=== PATIENT | female | born 1990 | race African-American/Black ===

== ENCOUNTER 2022-05-06 10:25 | Inpatient (IN) | payer OTHER ==
[2022-05-06] MEDS ORDERED: AMPICILLIN SODIUM 2 GM VIAL ONE (10:52)
[2022-05-06] MEDS: ELECTROLYTE-148 SOLN 1,000 ML IV SCH (11:00)
[2022-05-06] MEDS ORDERED: OXYTOCIN 20 UNITS in 0.9% NS 40 UNIT/2,000 ML INFUS.BAG IV ONE (11:21)
[2022-05-06] MEDS ORDERED: ceFAZolin SODIUM 1 GM VIAL ONE (11:22)
[2022-05-06] MEDS ORDERED: morphine SULFATE/PF 1 MG/2 ML (2cc Syringe - QUVA) ONE (11:22)
[2022-05-06 11:24] LABS: BASO % 1.1 % (0-2.0); EOS % 3.3 % (0-4.5); HEMATOCRIT 35.3 % (32.4-45.2); HEMOGLOBIN 11.4 GM/dL (10.7-15.3); LYMPH % 14.2 % (8-40); MCH 21.6 pg (25.7-33.7); MCHC 32.3 g/dl (32.0-36.0); MEAN PLT VOLUME 10.2 fl (7.5-11.1); MONO % 9.8 % (3.8-10.2); NEUT % 71.6 % (42.8-82.8); PLATELET COUNT 177 10^3/uL (134-434); RBC 5.28 M/mm3 (3.60-5.2); RDW 15.8 % (11.6-15.6); WHITE BLOOD COUNT 11.8 K/mm3 (4.0-10.0)
[2022-05-06] MEDS ORDERED: METHYLERGONOVINE MALEATE 0.2 MG/1 ML AMP IM PRN (11:25)
[2022-05-06] MEDS ORDERED: BENZOCAINE 28 GM HEMORRHOIDAL OINTMENT TP PRN (11:25)
[2022-05-06] MEDS ORDERED: BENZOCAINE 20% 57 GM BOTTLE TP PRN (11:25)
[2022-05-06] MEDS ORDERED: AMPICILLIN - 2 GM in SODIUM CHLORIDE 100 ML IVPB ONE (11:25)
[2022-05-06] MEDS ORDERED: ACETAMINOPHEN 325 MG TABLET (FP) PO PRN (11:25)
[2022-05-06] MEDS ORDERED: IBUPROFEN 800 MG/8 ML IJ IVPB PRN (11:25)
[2022-05-06 11:40] VITALS: BMI 29.9
[2022-05-06] MEDS ORDERED: OXYTOCIN 10 UNITS/ML VIAL ONE (11:43)
[2022-05-06] MEDS ORDERED: DEXAMETHASONE SOD PHOSPHATE 4 MG/1 ML VIAL ONE (11:46)
[2022-05-06] MEDS ORDERED: ONDANSETRON 4 MG/2 ML VIAL ONE (11:46)
[2022-05-06 11:51] LABS: CALCIUM 8.6 mg/dL (8.5-10.1)
[2022-05-06 11:52] LABS: BLOOD UREA NITROGEN 5.9 mg/dL (7-18)
[2022-05-06 11:55] LABS: CREATININE 0.7 mg/dL (0.55-1.3)
[2022-05-06 12:02] LABS: ANISOCYTOSIS 2+; MACROCYTOSIS 1+
[2022-05-06 12:03] LABS: PLATELET ESTIMATE ADEQUATE
[2022-05-06] MEDS: OXYTOCIN 20 UNITS in 0.9% NS 20 UNIT/1,000 ML INFUS.BAG IV SCH ×2 (12:30→21:19)
[2022-05-06] MEDS ORDERED: ONDANSETRON 4 MG/2 ML VIAL IVPUSH PRN (12:36)
[2022-05-06] MEDS ORDERED: ACETAMINOPHEN 1000 MG/100 ML BAG IVPB PRN (12:37)
[2022-05-06 12:41] LABS: ACTIVATED PTT 29.3 SECONDS (25.2-36.5); INR 0.89 (0.83-1.09); PROTHROMBIN TIME (PATIENT) 10.2 SEC (9.7-13.0)
[2022-05-06 12:46] LABS: HIV INTERPRETATION NEGATIVE (NEGATIVE)
[2022-05-06] MEDS ORDERED: CITRIC ACID/SODIUM CITRATE 30 ML UNIT-DOSE CUP PO ONE (13:00)
[2022-05-06 13:17] LABS: CORD HCO3 21.3 mmHg (20-29); CORD PCO2 39.5 mmHg (30-78); CORD pH 7.349 (7.14-7.44)
[2022-05-06 13:20] LABS: CORD BASE EXCESS -5.6 mmol/L (0-2); CORD HCO3 20.6 mmHg (20-29); CORD pH 7.298 (7.14-7.44)
[2022-05-06] MEDS ORDERED: AMPICILLIN - 1 GM in SODIUM CHLORIDE 100 ML IVPB SCH (15:30)
[2022-05-07] MEDS: SIMETHICONE 80 MG TAB.CHEW (FP) PO PRN ×6 (04:04→23:40)
[2022-05-07] MEDS: IBUPROFEN 600 MG TABLET (FP) PO PRN ×4 (08:02→20:44)
[2022-05-07 09:48] LABS: BASO % 0.3 % (0-2.0); EOS % 0.8 % (0-4.5); HEMATOCRIT 37.2 % (32.4-45.2); LYMPH % 10.2 % (8-40); MCH 22.4 pg (25.7-33.7); MCHC 32.3 g/dl (32.0-36.0); MEAN CELL VOLUME 69.4 fl (80-96); MEAN PLT VOLUME 10.4 fl (7.5-11.1); MONO % 5.7 % (3.8-10.2); PLATELET COUNT 207 10^3/uL (134-434); RBC 5.36 M/mm3 (3.60-5.2); RDW 16.6 % (11.6-15.6)
[2022-05-07] MEDS: PRENATAL VITAMINS W/ FOLIC ACID TABLET (FP) PO SCH (10:26)
[2022-05-07] MEDS ORDERED: BISACODYL 10 MG SUPP.RECT RC PRN (11:25)
[2022-05-07] MEDS: OXYTOCIN 20 UNITS in 0.9% NS 20 UNIT/1,000 ML INFUS.BAG IV SCH (16:02)
[2022-05-07] MEDS: AMOX TR/POT CLAV 500MG/125MG TABLETS (FP) PO SCH (17:07)
[2022-05-07] MEDS ORDERED: oxyCODONE HCL 5 MG TABLET PO PRN (23:25)
[2022-05-07] MEDS: oxyCODONE HCL 5 MG TABLET PO PRN (23:40)
[2022-05-08] MEDS: oxyCODONE HCL 5 MG TABLET PO PRN (05:09)
[2022-05-08] MEDS: SIMETHICONE 80 MG TAB.CHEW (FP) PO PRN ×2 (05:09→21:40)
[2022-05-08] MEDS: AMOX TR/POT CLAV 500MG/125MG TABLETS (FP) PO SCH ×2 (08:02→18:07)
[2022-05-08] MEDS: IBUPROFEN 600 MG TABLET (FP) PO PRN ×2 (08:57→21:40)
[2022-05-08] MEDS: PRENATAL VITAMINS W/ FOLIC ACID TABLET (FP) PO SCH (11:00)
[2022-05-08] MEDS ORDERED: POLYETHYLENE GLYCOL (HEALTHYLAX) 3350 17 GM PACKET PO PRN (11:37)
[2022-05-08 11:38] LABS: BASO % 0.3 % (0-2.0); EOS % 2.6 % (0-4.5); HEMATOCRIT 27.2 % (32.4-45.2); HEMOGLOBIN 8.7 GM/dL (10.7-15.3); LYMPH % 11.5 % (8-40); MCH 21.7 pg (25.7-33.7); MCHC 31.8 g/dl (32.0-36.0); MEAN CELL VOLUME 68.3 fl (80-96); MEAN PLT VOLUME 9.2 fl (7.5-11.1); MONO % 8.4 % (3.8-10.2); NEUT % 77.2 % (42.8-82.8); PLATELET COUNT 195 10^3/uL (134-434); RBC 3.99 M/mm3 (3.60-5.2)
[2022-05-08] MEDS: ACETAMINOPHEN 500 MG TABLET (FP) PO SCH ×3 (13:30→23:45)
[2022-05-08] MEDS ORDERED: IRON SUCROSE INJECTION 100 MG in SODIUM CHLORIDE 95 ML IVPB ONE (14:29)
[2022-05-08] MEDS: ELECTROLYTE-148 SOLN 1,000 ML IV SCH (18:59)
[2022-05-08 19:24] LABS: BASO % 0.2 % (0-2.0); EOS % 3.4 % (0-4.5); HEMATOCRIT 27.3 % (32.4-45.2); HEMOGLOBIN 8.8 GM/dL (10.7-15.3); MCHC 32.3 g/dl (32.0-36.0); MEAN PLT VOLUME 9.4 fl (7.5-11.1); MONO % 8.4 % (3.8-10.2); PLATELET COUNT 188 10^3/uL (134-434); RBC 4.02 M/mm3 (3.60-5.2); RDW 16.3 % (11.6-15.6); WHITE BLOOD COUNT 13.1 K/mm3 (4.0-10.0)
[2022-05-09] MEDS: ACETAMINOPHEN 500 MG TABLET (FP) PO SCH ×2 (05:45→12:05)
[2022-05-09] MEDS: AMOX TR/POT CLAV 500MG/125MG TABLETS (FP) PO SCH (08:00)
[2022-05-09 09:34] LABS: BASO % 0.5 % (0-2.0); EOS % 4.7 % (0-4.5); HEMATOCRIT 29.1 % (32.4-45.2); HEMOGLOBIN 9.2 GM/dL (10.7-15.3); LYMPH % 10.5 % (8-40); MCH 21.5 pg (25.7-33.7); MCHC 31.5 g/dl (32.0-36.0); MEAN CELL VOLUME 68.2 fl (80-96); MEAN PLT VOLUME 9.8 fl (7.5-11.1); MONO % 6.7 % (3.8-10.2); NEUT % 77.6 % (42.8-82.8); PLATELET COUNT 233 10^3/uL (134-434); RBC 4.26 M/mm3 (3.60-5.2); RDW 16.1 % (11.6-15.6); WHITE BLOOD COUNT 13.4 K/mm3 (4.0-10.0)
[2022-05-09] MEDS: PRENATAL VITAMINS W/ FOLIC ACID TABLET (FP) PO SCH (10:28)
[2022-05-09] MEDS: SIMETHICONE 80 MG TAB.CHEW (FP) PO PRN (10:35)
[2022-05-09 11:18] LABS: EPI CELLS 25 /uL (0-25.1); HYALINE CASTS 0 /uL (0-3.1); URINE APPEARANCE CLEAR; URINE BACTERIA 2 /uL (0-1359); URINE BILIRUBIN NEGATIVE (NEGATIVE); URINE COLOR YELLOW; URINE GLUCOSE (UA) NEGATIVE (NEGATIVE); URINE KETONE NEGATIVE (NEGATIVE); URINE LEUK ESTERASE TRACE (NEGATIVE); URINE NITRITE NEGATIVE (NEGATIVE); URINE PROTEIN NEGATIVE (NEGATIVE); URINE RBC 17 /uL (0-23.9); URINE UROBILINOGEN 0.2 mg/dL (0.2-1.0); URINE WBC 9 /uL (0-25.8)
[2022-05-09 11:37] VITALS: BP 115/78; PULSE 76; RESP 16; TEMP 98.2
== END 2022-05-09 14:50 | disposition home or self-care (01) | DRG 540 ==
LOC: JLDR 10:25 → J3W 16:50
PROVIDERS: ADMIT Obstetrics & Gynecology; ATTEND Obstetrics & Gynecology
PROC: 10D00Z1 Extraction of Products of Conception, Low, Open Approach (ICD-10-PCS; principal; 2022-05-06)
DX: O76 Abnormality in fetal heart rate and rhythm complicating labor and delivery (principal); O77.0 Labor and delivery complicated by meconium in amniotic fluid; O69.89X0 Labor and delivery complicated by other cord complications, not applicable or unspecified; Z3A.38 38 weeks gestation of pregnancy; Z37.0 Single live birth
CPT/HCPCS: 36415; 36600; 80048; 81003; 82803; 85025; 85610; 85730; 86780; 86850; 86900; 86901; 87086; 87389; 88307-TC; C9803-CS; J1756; U0003; U0005